=== PATIENT | female | born 1960 | race Caucasian/White ===

== ENCOUNTER → 2017-06-01 | Outpatient (CLI) | payer OTHER | LOC: MC.RAD 10:31 | DX: Z12.31 Encounter for screening mammogram for malignant neoplasm of breast (principal) ==

== ENCOUNTER → 2017-12-16 | Outpatient (CLI) | payer MEDICAID | LOC: COL.RAD 11:08 | DX: M19.012 Primary osteoarthritis, left shoulder (principal) ==

== ENCOUNTER → 2018-08-25 | Outpatient (CLI) | payer MEDICAID | LOC: MC.RAD 11:27 | DX: Z12.31 Encounter for screening mammogram for malignant neoplasm of breast (principal) ==

== ENCOUNTER → 2018-10-03 | Outpatient (CLI) | payer MEDICAID | LOC: COL.RAD 12:47 | DX: M25.531 Pain in right wrist (principal); Z87.81 Personal history of (healed) traumatic fracture; Z98.890 Other specified postprocedural states | CPT/HCPCS: J3301; Q9967 ==

== ENCOUNTER → 2019-11-09 | Outpatient (CLI) | payer MEDICAID, OTHER | LOC: MC.RAD 10-05 09:45 | DX: Z12.31 Encounter for screening mammogram for malignant neoplasm of breast (principal) ==

== ENCOUNTER → 2021-04-10 | Outpatient (CLI) | payer MEDICAID ==
[~2021-04-10] VITALS: Ht 172.7 cm; Wt 88.3 kg
[2021-04-10] VITALS (14 sets, daily range): BP systolic 74–136; BP diastolic 49–90; PULSE 48–77; TEMP 97.7
[~2021-04-10] MED LIST: LIPITOR 40MG TA40 MG PO; PROVENTIL0.09 MG/A1 IH; RT SPIRIVA18 MCG IH; VITAMIND3 5000 PO
--- NOTE | 2021-04-10 07:29 | NUR ---
PT TAKEN TO CT AND PLACED ON THE TABLE. MONITORING EEQUIPMENT PLACED.
== END ==
LOC: COL.RAD 05:41
DX: R94.5 Abnormal results of liver function studies (principal)
CPT/HCPCS: J3010